=== PATIENT | male | born 1990 | race Caucasian/White ===

== ENCOUNTER 2024-09-27 14:43 | Emergency (ER) | payer OTHER, SELFPAY ==
--- NOTE | ~2024-09-27 | XR_ITS ---
EXAM: XR hand LT min 3V DATE: 09/27/2024 15:14 HISTORY: laceration PALMAR 1ST DIGIT WITH TABLE SAW . COMPARISON: None available. FINDINGS: Normal mineralization. No fracture or dislocation. No lytic or blastic lesion. Joint space s are maintained. No erosion or periosteal change. Soft tissue irregularity and swelling over the rola mb. IMPRESSION: No acute osseous finding in the left hand. Reviewed, dictated and finalized at location K.
--- NOTE | 2024-09-27 14:56 | ED_ITS ---
HPI - Wound/Laceration General Chief Complaint: Wound/Laceration Stated Complaint: thumb lac Time Seen by Provider: 09/27/24 14:45 History of Present Illness HPI narrative: 33 y/o male presents with a laceration to left thumb. patient states he was using a table saw and hit his left thumb. patient is right hand dominant. patient has no other injuries. patient unsure of last TDAP. no other complaints. Extremity Location: Left: hand Place: home Patient tetanus UTD: No Associated symptoms: pain Treatments prior to arrival: bandage Related Data Allergies Allergy/AdvReac Type Severity Reaction Status Date / Time No Known Allergies Allergy Verified 09/27/24 15:09 Review of Systems Review of Systems: A 10 system review of systems was completed on the patient and is negative except for what is stated in the HPI. Nursing and ancillary documentation was reviewed. Exam Narrative: GENERAL: Well-appearing, well-nourished, and in no acute distress. HEAD: Normocephalic, atraumatic. EYES: PERRLA and EOMI. ENT: Nares clear, no rhinorrhea or epistaxis. Mucous membranes moist. NECK: Supple. CHEST: Clear to auscultation. No respiratory distress. HEART: Regular rate and rhythm. No murmur heard. Normal peripheral pulses. ABDOMEN: Soft, nontender, nondistended, normal active bowel sounds. EXTREMITIES: Normal range of motion. No edema. SKIN: 2 cm U shaped laceration to pad of left thumb NEURO: No focal deficits. Alert and oriented x3. PSYCH: Normal mood and affect. Course Course Emergency Course: Will image the thumb to rule out fracture or foreign body. Tetanus is ordered Vital Signs Vital signs: Vital Signs Temperature 36.4 C 09/27/24 15:05 Pulse Rate 83 09/27/24 15:05 Respiratory Rate 16 09/27/24 15:05 Blood Pressure 120/86 09/27/24 15:05 Pulse Oximetry 96 09/27/24 15:05 Oxygen Delivery Room Air 09/27/24 15:05 Temperature 36.4 C 09/27/24 15:05 Pulse Rate 83 09/27/24 15:05 Respiratory Rate 16 09/27/24 15:05 Blood Pressure 120/86 09/27/24 15:05 Pulse Oximetry 96 09/27/24 15:05 Oxygen Delivery Room Air 09/27/24 15:05 Procedures Laceration Laceration 1: Date: 09/27/24 Time: 15:53 Site: hand (left thumb) Side (If applicable): left Size (cm): 3 Description: irregular Depth: simple, single layer Local Anesthetic: lidocaine 1% Amount of anesthesia used (mL): 5 Pre-repair: irrigated ====== Skin Level ====== Skin layer closed with: nylon Size (cm): 5-0 Number of sutures: 6 Technique: simple, interrupted ====== Subcutaneous Layer ====== ====== Muscle Layer ====== ====== Tendon Layer ====== Dressing: bulky dressing. areas of skin missing from the injury so unable to suture that area. patient tolerated procedure well MDM - Wound/Laceration MDM Narrative Medical decision making narrative: Patient's x-rays are negative for any fracture. Six sutures placed along the multiple laceration. Skin missing and multiple areas. Patient tolerated procedure. Will place the patient on antibiotics. Patient requesting pain medication Discharge Plan Discharge Clinical Impression: Laceration of blood vessel of left thumb Patient Disposition: Home Condition: Stable Instructions: Antibiotic Form, Laceration (ED) Additional Instructions: Take medication as prescribed Return for any worsening symptom Sutures to be removed in 10 days Patient Language: Greenlandic Prescriptions: New cephalexin 500 mg capsule 500 mg PO Q12H Qty: 14 0RF hydrocodone-acetaminophen 5-325 mg tablet 1 tablet PO Q6H PRN (Reason: pain) Qty: 14 0RF Follow-up/Referrals: PHYSICIAN NOT ON STAFF,NONSTAFF [Non-Staff] - 1 Week (sutures to be removed in 10 days) Time of Disposition: 16:00
[2024-09-27 15:05] VITALS: BP 120/86; PULSE 83; RESP 16; TEMP 36.4; O2SAT 96
[2024-09-27] MEDS: Please add drug allergy info to patient profile. 1 EACH XX (15:13)
[2024-09-27] MEDS: TETANUS,DIPHTHERIA,AC PERTUSSIS ADULT (0.5 ML) BOOSTRIX IM (16:00)
== END 2024-09-27 16:19 | disposition home or self-care (01) ==
PROVIDERS: Emergency Provider Nurse Practitioner Family
DX: S65.412A Laceration of blood vessel of left thumb, initial encounter (principal); Z23 Encounter for immunization; W31.2XXA Contact with powered woodworking and forming machines, initial encounter
CPT/HCPCS: 12002; 73130; 90471; 90714; 90715; 99283